=== PATIENT | female | born 1965 | race American Indian/Alaskan Native ===

== ENCOUNTER 2016-07-02 12:58 | Emergency (ER) | payer MEDICAID ==
[2016-07-02 13:25] VITALS: BP 121/71
--- NOTE | 2016-07-02 15:04 | EDM.PDOC ---
ED HPI GENERAL MEDICAL PROBLEM - General Chief Complaint: Lower Extremity Injury/Pain Stated Complaint: PAIN IN RIGHT FOOT Time Seen by Provider: 07/02/16 14:55 Source of Information: Reports: Patient History Limitations: Reports: No Limitations - History of Present Illness INITIAL COMMENTS - FREE TEXT/NARRATIVE: This 50 yo female patient reports to the ED with right foot pain. The patient reports she was working yesterday when a patient stepped on her foot. The patient reports increased pain over the area. Onset: Sudden Onset Date: 07/01/16 Duration: Constant, Getting Worse Location: Reports: Lower Extremity, Right Quality: Reports: Ache, Dull Severity: Moderate Improves with: Reports: Rest Worsens with: Reports: Movement Associated Symptoms: Reports: No Other Symptoms Right Feet Pain Score (Numeric/FACES): 9 - Related Data Allergies Allergy/AdvReac Type Severity Reaction Status Date / Time lisinopril Allergy Severe Difficulty Verified 07/02/16 13:25 Breathing Sulfa (Sulfonamide Allergy Intermediate Burning Verified 07/02/16 13:25 Antibiotics) Home Meds: Home Meds Acetaminophen/HYDROcodone [[place] 325-5 MG] 1 tab PO Q8HR PRN 06/03/13 [History] DULoxetine [Cymbalta] 60 mg PO DAILY 06/03/13 [History] Fluticasone Propionate [Flonase] 2 squirt NASBOTH DAILY 06/03/13 [History] Folic Acid 1 mg PO DAILY 06/03/13 [History] Losartan [Cozaar] 25 mg PO DAILY 06/03/13 [History] Magnesium Oxide 250 mg PO DAILY 06/03/13 [History] Mometasone Furoate [Asmanex 220 MCG] 1 puff IH DAILY PRN 06/03/13 [History] Vit #108/Iron/FA [ One Tablet] 1 tab PO DAILY 06/03/13 [History ] glipiZIDE [Glucotrol] 5 mg PO BID 06/03/13 [History] metFORMIN [Glucophage] 500 mg PO BIDM 06/03/13 [History] Etanercept [Enbrel] 25 mg SQ .WEEKLY 02/20/16 [History] Methotrexate 8 tab PO .WEEKLY 02/20/16 [History] Past Medical History - Past Health History Medical/Surgical History: Denies Medical/Surgical History HEENT History: Reports: Impaired Vision Other HEENT History: wears glasses Cardiovascular History: Reports: Hypertension Respiratory History: Reports: Asthma Gastrointestinal History: Reports: None Genitourinary History: Reports: None [employer] History: Reports: None Musculoskeletal History: Reports: Arthritis Neurological History: Reports: None Psychiatric History: Reports: None Endocrine/Metabolic History: Reports: Diabetes, Type II Hematologic History: Reports: None Immunologic History: Reports: None Oncologic (Cancer) History: Reports: None Dermatologic History: Reports: None - Infectious Disease History Infectious Disease History: Reports: Chicken Pox, Mumps - Past Surgical History Head Surgeries/Procedures: Reports: None Social & Family History - Family History Family Medical History: Noncontributory - Tobacco Use Smoking Status *Q: Never Smoker Second Hand Smoke Exposure: No - Caffeine Use Caffeine Use: Reports: Soda - Alcohol Use Days Per Week of Alcohol Use: 0 - Recreational Drug Use Recreational Drug Use: No Drug Use in Last 12 Months: No Review of Systems - Review of Systems Review Of Systems: ROS reveals no pertinent complaints other than HPI. Trauma Exam - Physical Exam Exam: See Below Exam Limited By: No Limitations General Appearance: Reports: Alert, WD/WN, Moderate Distress Head: Reports: Atraumatic, Normocephalic Eyes: Bilateral Eye: EOMI, Normal Inspection, PERRL Ears: Reports: Normal External Exam, Normal Canal, Hearing Grossly Normal, Normal TMs Nose: Reports: Normal Inspection, Normal Mucousa, No Blood Throat/Mouth: Reports: Normal Inspection, Normal Lips, Normal Teeth, Normal Gums , Normal Oropharynx, Normal Voice, No Airway Compromise Neck: Reports: Non-Tender, Full Range of Motion, Normal Alignment, Normal Inspection Respiratory Exam: Reports: No Respiratory Distress, Lungs Clear, Normal Breath Sounds Cardiovascular: Reports: Normal Peripheral Pulses, Regular Rate, Rhythm, No Edema, No Gallop, No JVD, No Murmur, No Rub GI/Abdominal: Reports: Normal Bowel Sounds, Soft, Non-Tender, No Organomegaly, No Distention, No Abnormal Bruit, No Mass (Female) Exam: Deferred Rectal (Female) Exam: Deferred Back: Reports: Full Range of Motion, Normal Inspection, Non-Tender Extremities: Tenderness (right foot pain to palpation) 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 As Tested, No Motor/Sensory Deficits, Alert , Normal Mood/Affect, Oriented x 3 Skin: Reports: Normal Color, Warm/Dry Course - Vital Signs Last Recorded V/S: Last Vital Signs Temp 36.3 C 07/02/16 13:20 Pulse 86 07/02/16 13:20 Resp 16 07/02/16 13:20 BP 121/71 07/02/16 13:20 Pulse Ox 100 07/02/16 13:20 Departure - Departure Time of Disposition: 14:58 Disposition: Home, Self-Care 01 Condition: fair Clinical Impression: Right foot strain Qualifiers: Encounter type: initial encounter Qualified Code(s): S96.911A - Strain of unspecified muscle and tendon at ankle and foot level, right foot, initial encounter - Discharge Information Instructions: Foot Sprain Forms: ED Department Discharge Care Plan Goals: The patient was advised of the examination and x-ray results during the visit. The patient should rest, ice and elevate her extremity. If the patient has any additional symptoms or concerns, the patient should follow-up with her primary care facility or return to the emergency department.
== END 2016-07-02 15:15 | disposition home or self-care (01) ==
LOC: DL.ED 12:58
DX: S96.911A Strain of unspecified muscle and tendon at ankle and foot level, right foot, initial encounter (principal); J45.909 Unspecified asthma, uncomplicated; I10 Essential (primary) hypertension; E11.9 Type 2 diabetes mellitus without complications; Z88.8 Allergy status to other drugs, medicaments and biological substances; Z88.2 Allergy status to sulfonamides; Z79.899 Other long term (current) drug therapy
CPT/HCPCS: 73630-RT; 99283

== ENCOUNTER → 2018-07-02 | Outpatient (CLI) | payer MEDICAID ==
--- NOTE | 2018-07-02 15:49 | CT ---
Clinical history: 52-year-old female with right facial paralysis (focal neural deficit greater than 6 hours). Stroke suspected this hypertensive obese female with diabetes. Scan technique: Volume acquisition of data emergency unenhanced CT scan of the head and brain obtained while the patient was lying supine on the Siemens multi slice scanner [place], [place]. All data archived in the PACS system for storage, reformatting axial/sagittal/coronal planes and study. Interpretation: 1. Uniformly thick bony calvarium and symmetric clear pneumatization of the paranasal/mastoid sinuses. Physiologic midline pineal and symmetric choroid plexus calcification (falx and meningeal calcifications). 2. No supratentorial or posterior fossa mass lesion. 3. Symmetric lovett-white matter pattern with underlying mirror-image normal ventricular system. No hydrocephalus. 4. No focal areas of ischemic infarct or encephalomalacia. No sign of acute intracerebral/intraventricular/subarachnoid bleed. 5. Cerebellum and brainstem unremarkable. CONCLUSION: Negative unenhanced CT scan for age. No intracranial mass, hydrocephalus, infarct or acute bleed.
== END ==
LOC: DL.CT 13:33
PROVIDERS: ATTEND Internal Medicine
DX: R29.818 Other symptoms and signs involving the nervous system (principal)
CPT/HCPCS: 70450